=== PATIENT | female | born 1975 | race Caucasian/White ===

== ENCOUNTER → 2019-12-12 15:16 | Outpatient (CLI) | payer OTHER, SELFPAY ==
--- NOTE | ~2019-12-12 | US_ITS ---
EXAMINATION: US transvaginal DATE: 12/15/2019 08:38 INDICATION: Amenorrhea. Last period in June. TECHNIQUE: Multiple transvaginal sonographic images of the pelvis were obtained. COMPARISON: None. FINDINGS: The uterus measures 9.2 x 4.3 x 5.3 cm. There is no free fluid in the pelvis. The endometrial complex measures 7 mm in thickness. The right ovary measures 1.3 x 1.7 x 1.3 cm. The left ovary measures 2.1 x 1.7 x 1.9 cm. There is normal vascular flow in the ovaries. IMPRESSION: 1. Normal pelvis. Reviewed, dictated and finalized at location A. IMPRESSION: 1. Normal pelvis.
== END ==
PROVIDERS: Visit Provider Nurse Practitioner
DX: N92.6 Irregular menstruation, unspecified (principal)
CPT/HCPCS: 76830

== ENCOUNTER → 2019-12-31 14:29 | Outpatient (CLI) | payer OTHER, SELFPAY ==
--- NOTE | ~2019-12-31 | MM_ITS ---
EXAMINATION: MM screening roddy BI w penny HISTORY: Screening mammogram TECHNIQUE: Craniocaudal and mediolateral oblique 3-D tomosynthesis images were obtained and synthetic 2-D images were generated. CAD analysis was submitted and interpreted. COMPARISON: No prior mammogram is available for comparison at this institution. BREAST PARENCHYMAL COMPOSITION: The breasts are almost entirely fatty. FINDINGS: There is no evidence of suspicious mass, calcification, or architectural distortion to sugg est malignancy in either breast. There has been no suspicious interval change. IMPRESSION: 1. No mammographic evidence of malignancy. 2. Recommend routine screening mammography in one year. BI-RADS Category 1: Negative Reviewed, dictated and finalized at location A. 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
== END ==
PROVIDERS: Visit Provider Nurse Practitioner
DX: Z12.31 Encounter for screening mammogram for malignant neoplasm of breast (principal)
CPT/HCPCS: 77063; 77067

== ENCOUNTER → 2022-11-17 15:15 | Outpatient (CLI) | payer OTHER, SELFPAY ==
--- NOTE | ~2022-11-17 | US_ITS ---
EXAMINATION: US thyroid DATE: 11/17/2022 15:36 INDICATION: Nontoxic single thyroid nodule. TECHNIQUE: Multiple ultrasound images of the thyroid were obtained. COMPARISON: None. FINDINGS: The right thyroid lobe measures 5.1 x 2.0 x 2.1 cm. The left thyroid lobe measures 3.5 x 1.3 x 1.3 c m. In the right thyroid lobe, there is a 1.6 cm solid, hypoechoic, wider than tall nodule with ill-d efined margin with macrocalcifications and peripheral calcifications (TI-RADS TR5). There are multipl e subcentimeter nodules in the thyroid. IMPRESSION: 1. Multinodular goiter. Ultrasound-guided fine-needle aspiration of the 1.6 cm right thyroid nodule i s recommended. Reviewed, dictated and finalized at location E. IMPRESSION: 1. Multinodular goiter. Ultrasound-guided fine-needle aspiration of the 1.6 cm right thyroid nodule is recommended.
== END ==
PROVIDERS: PCP Family Medicine; Visit Provider Nurse Practitioner
DX: E04.2 Nontoxic multinodular goiter (principal)
CPT/HCPCS: 76536

== ENCOUNTER 2022-12-25 12:15 | Outpatient (CLI) | payer OTHER, SELFPAY ==
--- NOTE | ~2022-12-25 | US_ITS ---
EXAMINATION: US FNA w image guidance DATE: 12/25/2022 13:37 INDICATION: Thyroid nodule TECHNIQUE: A time-out was performed to verify the patient's name, date of , and procedure to be performed . The procedure and its benefits and risks were discussed with the patient. Risks specifically discus sed included bleeding and infection. The patient understood the risks and agreed to proceed. The neck was prepped and draped in the usual sterile manner. 4 mL 1% lidocaine was used for local anesthesia . 6 passes were made with a 25G needle into the lesion. Appropriate needle location was documented with continuous sonographic guidance. A sterile bandage was applied. There were no immediate compli cations. FINDINGS: Grayscale ultrasound images demonstrate biopsy needles advanced into a 1.7 cm TI RADS 5 right thyroid nodule. IMPRESSION: 1. Successful ultrasound-guided fine needle aspiration of a 1.7 cm TI RADS 5 right thyroid nodule. Reviewed, dictated and finalized at location A. INIST 2ND SHIFT IMPRESSION: 1. Successful ultrasound-guided fine needle aspiration of a 1.7 cm TI RADS 5 r ight thyroid nodule.
== END 2022-12-25 12:16 | disposition home or self-care (01) ==
PROVIDERS: PCP Hospitalist; Visit Provider Hospitalist
DX: E04.1 Nontoxic single thyroid nodule (principal)
CPT/HCPCS: 10005; 88173; 88305